=== PATIENT | male | born 1975 | race Hispanic/Latino ===

== ENCOUNTER → 2018-09-12 | Day surgery (SDC) | payer BC ==
[2018-09-09 12:38] LABS: BASOPHILS % 0.2 % (0.0-1.0); EOSINOPHILS % 0.4 % (0.0-6.0); HEMATOCRIT 51.9 % (38.2-49.6); LYMPHOCYTES # (AUTO) 2.1 (1.0-3.2); LYMPHOCYTES % 25.9 % (18.0-39.1); MEAN CORPUSCULAR HEMOGLOBIN 30.1 pg (28-32); MEAN CORPUSCULAR HGB CONC 34.7 g/dL (31-35); MEAN CORPUSCULAR VOLUME 86.6 fL (81-99); MONOCYTES # (AUTO) 0.4 (0.2-0.8); MONOCYTES % 5.1 % (4.4-11.3); NEUTROPHILS # (AUTO) 5.6 (2.1-6.9); NEUTROPHILS % 68.3 % (38.7-80.0); PLATELET COUNT 165 x10e3/uL (140-360); RED BLOOD COUNT 5.99 x10e6/uL (4.3-5.7); RED CELL DISTRIBUTION WIDTH 11.9 % (11.7-14.4)
[2018-09-09 12:52] LABS: INR 0.96; PROTHROMBIN TIME 13.3 seconds (11.9-14.5)
[2018-09-09 12:58] LABS: ALANINE AMINOTRANSFERASE 16 IU/L (0-55); ALBUMIN 4.2 g/dL (3.5-5.0); ALBUMIN/GLOBULIN RATIO 1.3 (0.8-2.0); ALKALINE PHOSPHATASE 60 IU/L (40-150); ANION GAP 12.7 mmol/L (8-16); BLOOD UREA NITROGEN 21 mg/dL (7-26); BUN/CREATININE RATIO 22 (6-25); CALCIUM 10.1 mg/dL (8.4-10.2); CARBON DIOXIDE 25 mmol/L (22-29); CHLORIDE 103 mmol/L (98-107); CHOL/HDL RATIO 3.6 (3.9-4.7); CHOLESTEROL 164 MD/DL (0-199); CREATININE, SERUM 0.97 mg/dL (0.72-1.25); EST GLOMERULAR FILTRATION RATE > 60 ML/MIN (60-); GLUCOSE 140 mg/dL (74-118); HDL CHOLESTEROL 46 MG/DL (40-60); LDL CHOLESTEROL 94 MG/DL (60-130); POTASSIUM 3.7 mmol/L (3.5-5.1); SODIUM 137 mmol/L (136-145); TRIGLYCERIDES 121 MG/DL (0-149)
[~2018-09-12] VITALS: Ht 175.3 cm; Wt 90.7 kg
[2018-09-12] VITALS (10 sets, daily range): BP systolic 101–132; BP diastolic 66–91
[~2018-09-12] MED LIST: ASPIR 8181 MG PO; ATORVASTATIN CA20 MG PO; FARXIGA PO; FENOFIBRATE145 MG PO; GLIMEPIRIDE4 MG PO; JANUVIA100 MG PO; LISINOPRIL2.5 MG PO; METFORMIN HCL500 MG PO; MIDAZOLAM HCL 2 MG/2 ML VIAL ONE
--- OUTSIDE RECORDS SUMMARY | 2018-09-12 06:00 | XMS REPORT | Encounter Summary ---
Author Organization Unknown Address [address] [place] [address] Phone [phone] Care Team Providers Care Group Home Worker Name Role Phone Dr. Sridhar Teran 3 [phone] Reason for Visit Right hand pain Instructions 1. Pain in right hand XR, hand, 2 view - PLEASE CONTACT OUR PATIENT. THANK YOU meloxicam 15 mg tablet 2. Type 2 diabetes mellitus 3. Primary erectile dysfunction sildenafil (antihypertensive) 20 mg tablet Discussion Note: None recorded. Patient educational handouts: No information available. Plan of Care Reminders Provider Appointments Est Patient 09/28/2018 8:00AM Sridhar Smith MD Lab None recorded. Referral None recorded. Procedures None recorded. Surgeries None recorded. Imaging XR, Hand, 2 View 08/02/2018 [facility] Medications Name Start Date aspirin 81 mg tablet,delayed release TAKE 1 TABLET BY MOUTH EVERY DAY DIRECTED atorvastatin 40 mg tablet Take 1 tablet every day by oral route. Farxiga 10 mg tablet Take 1 tablet every day by oral route as directed for 90 days. fenofibrate 160 mg tablet TAKE 1 TABLET BY MOUTH DAILY glimepiride 4 mg tablet TAKE 1 TABLET BY MOUTH TWICE DAILY DIRECTED Januvia 100 mg tablet Take 1 tablet every day by oral route as directed for 90 days. lisinopril 2.5 mg tablet TAKE 1 TABLET BY MOUTH EVERY DAY DIRECTED meloxicam 15 mg tablet TAKE 1 TABLET BY MOUTH EVERY DAY FOR 14 DAYS NEEDED metformin 1,000 mg tablet TAKE 1 TABLET BY MOUTH TWICE DAILY Microlet Lancet test blood sugar daily sildenafil (antihypertensive) 20 mg tablet TAKE 2 TO 3 TABLETS BY MOUTH DAILY NEEDED sildenafil 100 mg tablet Take one tablet daily as needed prior to sexual activity Medications Administered None recorded. Vitals Height Weight BMI Blood Pressure 5 ft 10 in 202.2 lbs 29 kg/m2 120/80 mm[Hg] Lab Results None recorded. Allergies Code Code System Name Reaction Severity Status Onset NKDA Problems Name Status Onset Date Source Type 2 Diabetes Mellitus Active 03/30/2016 Hyperlipidemia Active 03/30/2016 Renal Mass Active 04/14/2017 Procedures Date Name Performed by 03/11/2017 Partial Removal of Kidney Information not available 07/05/2016 Cancer Surgery Information not available 08/02/2018 XR, Hand, 2 View [facility] [place] [address] [place], [place] [phone] (Work Place) Vaccine List Vaccine Type influenza, injectable, quadrivalent 04/04/2016 influenza, unspecified formulation 04/04/2018 pneumococcal polysaccharide PPV23 01/20/20170.5 mL Tdap 01/15/2015 Social History Smoking Status Current Some Day Smoker Past Encounters 08/02/2018 Pain in Right Hand; Type 2 Diabetes Mellitus; Primary Erectile Dysfunction Sridhar Smith MD: [address] [place] [address], Ph. History of Present Illness Note:R hand pain since 5 days ago. Trigger: punched the wall. Concomitantly, swelling and difficulty doing a fist. Denies erythema, deformities or crepitations. Review of Systems Comprehensive General Adult ROS Reported By: Patient Cardiovascular: Cardiovascular: no chest pain Respiratory: Respiratory: no cough, no wheezing, no shortness of breath Gastrointestinal: Gastrointestinal: no abdominal pain Musculoskeletal: Musculoskeletal: arthralgias/joint pain Neurologic: Neurologic: no loss of consciousness, no headaches Physical Exam General Adult Exam (male) Reported By: Patient Constitutional: General Appearance: healthy-appearing, overweight. Level of Distress: NAD. Ambulation: ambulating normally Psychiatric: Insight: good judgement. Mental Status: active and alert, normal mood, normal affect. Orientation: to time, to place, to person. Memory: recent memory normal, remote memory normal Eyes: Lids and Conjunctivae: non-injected, no discharge Neck: Neck: trachea midline Lungs: Respiratory effort: no dyspnea Musculoskeletal:: Motor Strength and Tone: normal, normal tone. Joints, Bones, and Muscles: normal movement of all extremities; R HAND: swelling on the dorsal aspect. Tenderness with palpation on the 4th and 5th MCP joints. Normal ROM. No deformities or crepitations Neurologic: Gait and Station: normal gait Skin: Inspection and palpation: no rash, no lesions
--- OUTSIDE RECORDS SUMMARY | 2018-09-12 06:00 | XMS REPORT | Encounter Summary ---
Author Organization Unknown Address [address] [place] [address] Phone [phone] Care Team Providers Care Traffic Worker Name Role Phone Dr. Sridhar Teran 3 [phone] Reason for Visit diabetic foot exam; tingling/numbness Instructions 1. Type 2 diabetes mellitus diabetic ophthalmology referral - Please schedule & contact our patient. thank you. pioglitazone 30 mg tablet 2. Diabetic peripheral neuropathy associated with type 2 diabetes mellitus gabapentin 300 mg capsule 3. Body mass index 25-29 - overweight learning about healthy weight Discussion Note: None recorded. Plan of Care Reminders Provider Appointments Est Patient 09/28/2018 8:00AM Sridhar Smith MD Return to Office on or around 10/07/2018 Sridhar Smith MD Lab None recorded. Referral Diabetic Ophthalmology Referral 08/10/2018 Remi Faith MD Procedures None recorded. Surgeries None recorded. Imaging None recorded. Medications Name Start Date aspirin 81 mg tablet,delayed release TAKE 1 TABLET BY MOUTH EVERY DAY DIRECTED atorvastatin 40 mg tablet Take 1 tablet every day by oral route. Farxiga 10 mg tablet Take 1 tablet every day by oral route as directed for 90 days. fenofibrate 160 mg tablet TAKE 1 TABLET BY MOUTH DAILY gabapentin 300 mg capsule Take 1 capsule every day by oral route at bedtime for 30 days. glimepiride 4 mg tablet TAKE 1 TABLET [...] DAILY Microlet Lancet test blood sugar daily pioglitazone 30 mg tablet Take 1 tablet every day by oral route as directed for 30 days. sildenafil (antihypertensive) 20 mg tablet TAKE 2 TO 3 TABLETS BY MOUTH DAILY NEEDED Medications Administered None recorded. Vitals Height Weight BMI Blood Pressure 5 ft 10 in 201.6 lbs 28.9 kg/m2 132/82 mm[Hg] Lab Results None recorded. Allergies Code Code System Name Reaction Severity Status Onset NKDA Problems Name Status Onset Date Source Type 2 Diabetes Mellitus Active 03/30/2016 Hyperlipidemia Active 03/30/2016 Renal Mass Active 04/14/2017 Procedures Date Name Performed by 03/11/2017 Partial Removal of Kidney Information not available 07/05/2016 Cancer Surgery Information not available 08/02/2018 XR, Hand, 2 View [facility] [place] [address] [place], [place] [phone] (Work Place) Vaccine List Vaccine Type influenza, injectable, quadrivalent 04/04/2016 influenza, unspecified formulation 04/04/2018 pneumococcal polysaccharide PPV23 01/20/20170.5 mL Tdap 01/15/2015 Social History Smoking Status Former Smoker Past Encounters 08/10/2018 Type 2 Diabetes Mellitus; Diabetic Peripheral Neuropathy Associated with Type 2 Diabetes Mellitus; Body Mass Index 25-29 - Overweight Sridahr Smith MD: [address] [place] [phone], Ph. 08/02/2018 Pain in Right Hand; Type 2 Diabetes Mellitus; Primary Erectile Dysfunction Sridhar Smith MD: [address] [place] [address], Ph. History of Present Illness Note:Hx of dm complaining of numbness and tingling in the feet since 2 weeks ago. Comes and goes. Denies pain. Glucose level: 150s fasting. Compliant with meds. Non compliant with diet or exercise. Review of Systems Comprehensive General Adult ROS Reported By: Patient Constitutional: Constitutional: no fever Eyes: Eyes: no vision change Cardiovascular: Cardiovascular: no chest pain, no palpitations, no lightheadedness Respiratory: Respiratory: no cough, no wheezing, no shortness of breath Gastrointestinal: Gastrointestinal: no abdominal pain, no nausea, no vomiting, no constipation, no diarrhea Musculoskeletal: Musculoskeletal: no muscle aches, no swelling in the extremities Neurologic: Neurologic: no loss of consciousness, no headaches Psychiatric: Psych: no depression, no alcohol abuse, no anxiety, no suicidal thoughts Physical Exam General Adult Exam (male) Reported By: Patient Constitutional: General Appearance: healthy-appearing, overweight. Level of Distress: NAD. Ambulation: ambulating normally Psychiatric: Insight: good judgement. Mental Status: active and alert, normal mood, normal affect. Orientation: to time, to place, to person. Memory: recent memory normal, remote memory normal Eyes: Lids and Conjunctivae: non-injected, no discharge ENMT: Oropharynx: moist mucous membranes Neck: Neck: trachea midline Lungs: Auscultation: breath sounds normal Cardiovascular: Heart Auscultation: RRR, normal S1, normal S2, no murmurs. Neck vessels: no carotid bruits. Pulses including femoral / pedal: normal throughout Musculoskeletal:: Motor Strength and Tone: normal, normal tone. Joints, Bones, and Muscles: normal movement of all extremities, no contractures, no bony abnormalities, no malalignment, no tenderness. Extremities: no edema Neurologic: Gait and Station: normal gait. Sensation: grossly intact, monofilament test intact. Reflexes: DTRs 2+ bilaterally throughout. Coordination and Cerebellum: no tremor Skin: Inspection and palpation: no rash, no lesions
--- OUTSIDE RECORDS SUMMARY | 2018-09-12 06:00 | XMS REPORT ---
Author [facility] Address Unknown Phone Unavailable Care Team Providers Care [place] [employer] Name Role Phone Unavailable Unavailable Payers Payer Name Policy Type Policy Number Effective Date Expiration Date Problems This patient has no known problems. Allergies, Adverse Reactions, Alerts Allergy Name Allergy Type Status Severity Reaction(s) Onset Date Inactive Date Treating Clinician Comments No Known Allergies DA Active U 2017-01-20 00:00:00 Medications This patient has no known medications. Results Test Description Test Time Test Comments Text Results Atomic Results Result Comments - XR HAND 3 + V RT 2018-08-22 09:11:00 FAX: Sridhar Bryson [phone] [place]: [address]: REG FAX: Hudson Stevenson MD [phone] Name: AVI WHITEHEAD [facility] : 1975 Age/S: 43/M [address] Unit #: [id number] Loc: [place] [address] Phys: Hudson Smith MD Acct: [id number] Dis Date: Status: REG RCR PHONE #: [phone] Exam Date: 08/22/2018 0906 FAX #: [phone] Reason: FX EXAMS: CPT CODE: [id number] XR HAND 3 + [place] RT [id number] HISTORY: Fracture. COMPARISON: None available. 3 views of the right hand: Fracture of indeterminate age of the distal fifth metacarpal bone with mild dorsal attenuation and soft tissue swelling. Joint spaces are preserved. No erosive or destructive changes. IMPRESSION: Transverse fracture through the distal fifth metacarpal bone with mild dorsal angulation of indeterminate age. Mild soft tissue swelling. at 0911 Reported and signed by: Jose A Arenas M.D. CC: Sridhar Faulkner MD; Hudson Smith MD Technologist: RT Asher(R) Trnscrd Date/Time/By: 08/22/2018 (0911) : By: [email or web address] Orig Print D/T: S: 08/22/2018 (0915) PAGE 1 Signed Report
--- NOTE | 2018-09-12 08:35 | NUR ---
Attempted to remove 3mls of air from TR band. Bleeding noted from site. 3mls air reinserted into TR band. Will continue to monitor.
--- NOTE | 2018-09-12 08:49 | NUR ---
TR band remains in place with no further bleeding. Will continue to monitor.
--- NOTE | 2018-09-12 09:06 | NUR ---
3mls air removed from TR band. 9ml remain. No bleeding noted from TR band. Will continue to monitor.
--- NOTE | 2018-09-12 09:21 | NUR ---
3mls air removed from TR band. 6mls remains. No s/sx bleeding/hematoma noted. will continue to monitor.
--- NOTE | 2018-09-12 09:45 | NUR ---
Final 3mls of air removed from TR band and TR band removed. No s/sx bleeding/hematoma noted. Dressing applied. See lab scientist D/C note for vitals and note.
--- NOTE | 2018-09-12 17:29 | Operative Report ---
DATE OF PROCEDURE: 09/12/2018 SURGEON: James Kenyon MD INDICATION: Coronary artery disease, angina with abnormal stress test. PROCEDURES PERFORMED: 1. Left heart catheterization, selective coronary angiogram, left ventriculography. 2. Deployment of right wrist TR band. COMPLICATIONS: None. RECOMMENDATIONS: Medical therapy. DESCRIPTION OF PROCEDURE: Access obtained in the right radial artery, five-Niuean sheath was placed. Diagnostic coronary angiogram revealed no angiographic coronary artery disease. BREN 2 flow in all coronary vessels was noted. No focal stenosis or occlusions. No intervention was deemed necessary. LV ejection fraction 65%. LV end-diastolic pressure of 10. No gradient across aortic valve pullback. Guide and sheath removed. Right wrist TR band applied. The patient discharged home same day. James Kenyon MD KSB/MODL /[id number]
== END | disposition home or self-care (01) ==
LOC: CATH LAB 05:57
PROVIDERS: ATTEND Internal Medicine Interventional Cardiology
DX: I25.118 Atherosclerotic heart disease of native coronary artery with other forms of angina pectoris (principal); Z01.812 Encounter for preprocedural laboratory examination; I10 Essential (primary) hypertension; E11.9 Type 2 diabetes mellitus without complications
CPT/HCPCS: 36415; 80053; 80061; 85025; 85610; 93458; C1769; C1887; J2250